=== PATIENT | female | born 1950 | race Caucasian/White ===

== ENCOUNTER 2017-06-15 12:02 | Day surgery (SDC) | payer MEDICARE ==
[~2017-06-15 12:02] MED LIST: Acetaminophen TAB* 325 MG PO PRN; Buffered Lidocaine 0.9% SYRIN* 5 ML/SYR SYRINGE INTRADERM ONE
[2017-06-15] MEDS ORDERED: Buffered Lidocaine 0.9% SYRIN* 5 ML/SYR SYRINGE ONE (12:32)
[2017-06-15] MEDS ORDERED: Proparacaine 0.5% OPHTH.SOL* 15 ML BTL ONE (12:32)
[2017-06-15] MEDS ORDERED: Phenylephrine 2.5% OPTH.SOL* 2 ML BTL ONE (12:32)
[2017-06-15] MEDS ORDERED: Flurbiprofen 0.03% OPTH.SOL* 2.5 ML BTL ONE (12:32)
[2017-06-15] MEDS ORDERED: Lidocaine 1% MPF* 2 ML VIAL ONE (12:32)
[2017-06-15] MEDS ORDERED: acetaZOLAMIDE TAB* 250 MG ONE (12:32)
[2017-06-15] MEDS ORDERED: Cyclopentolate 1% OPTH.SOL* 2 ML BTL ONE (12:32)
[2017-06-15] MEDS ORDERED: Povidone Iodine 5% OPTH* 30 ML BTL ONE (12:32)
[2017-06-15] MEDS ORDERED: Neomycin/Polymy/Dex OPTH.SUSP* MAXITROL 0.1% 5 ML ONE (12:32)
[2017-06-15] MEDS ORDERED: Midazolam* 1 MG/ML 2 ML VIAL (2 MG) ONE ×2 (13:44→14:46)
[2017-06-15] MEDS ORDERED: fentaNYL* 50 MCG/ML 2 ML VIAL (100 MCG VIAL) ONE (13:44)
[2017-06-15 15:38] VITALS: BP 149/78
--- NOTE | 2017-06-15 15:42 | OP ---
DATE OF OPERATION: 06/15/2017 - [facility] DATE OF : 1950. SURGEON: Cesar Adame M.D. PREOPERATIVE DIAGNOSIS: Cataract left eye. POSTOPERATIVE DIAGNOSIS: Cataract left eye. OPERATIVE PROCEDURE: Phacoemulsification left eye with IOL. DESCRIPTION OF PROCEDURE: The patient was brought to the operating room after being given 1/2% Alcaine with epinephrine drops in the preoperative area. The eye was prepped and draped in the usual sterile fashion. Sterile drape and eyelid speculum were placed. Again, topical 1/2% Alcaine with epinephrine was given. A paracentesis incision was made at the 3 o'clock position with the No.75 blade. Clear cornea incision 2.2 x 2.2-mm was created at the 6 o'clock position starting at the anterior limbus using the 2.2-mm keratome. The anterior chamber was irrigated with 0.4 mL of 1% non-preservative intracameral lidocaine and filled with DisCoVisc. A capsulorrhexis was completed using the cystotome and the Utrata forceps. Hydrodissection was performed with balanced salt solution. The lens nucleus was removed with the Phacoemulsification handpiece without incident. Cortex was removed with the irrigation-aspiration handpiece. The capsular bag was re-inflated using DisCoVisc and an [id number] 14.5 implant was inserted with the shooter. The irrigation-aspiration handpiece was used to remove all residual DisCoVisc. The eye was refilled with balanced salt solution and the wound checked and found to be watertight. Topical Maxitrol drops were given. [id number]/[facility] #: [id number] [facility]
== END 2017-06-15 15:26 | disposition home or self-care (01) ==
LOC: OREAST 12:02
PROVIDERS: ATTEND Specialist
DX: H25.812 Combined forms of age-related cataract, left eye (principal); H40.053 Ocular hypertension, bilateral; I10 Essential (primary) hypertension; E66.01 Morbid (severe) obesity due to excess calories; Z68.41 Body mass index [BMI] 40.0-44.9, adult
CPT/HCPCS: A9270-GY; J2250; J3010; V2632

== ENCOUNTER 2017-06-22 07:13 | Day surgery (SDC) | payer MEDICARE ==
[2017-06-22] MEDS ORDERED: Ketorolac 0.5% OPHTH (NF) 0.5 % 5 ML BTL ONE (09:04)
[2017-06-22] MEDS ORDERED: Neomycin/Polymy/Dex OPTH.SUSP* MAXITROL 0.1% 5 ML ONE (09:05)
[2017-06-22] MEDS ORDERED: Povidone Iodine 5% OPTH* 30 ML BTL ONE (09:05)
[2017-06-22] MEDS ORDERED: Buffered Lidocaine 0.9% SYRIN* 5 ML/SYR SYRINGE ONE (09:05)
[2017-06-22] MEDS ORDERED: Lidocaine 1% MPF* 2 ML VIAL ONE (09:05)
[2017-06-22] MEDS ORDERED: Cyclopentolate 1% OPTH.SOL* 2 ML BTL ONE (09:05)
[2017-06-22] MEDS ORDERED: Proparacaine 0.5% OPHTH.SOL* 15 ML BTL ONE (09:05)
[2017-06-22] MEDS ORDERED: acetaZOLAMIDE TAB* 250 MG ONE (09:05)
[2017-06-22] MEDS ORDERED: Phenylephrine 2.5% OPTH.SOL* 2 ML BTL ONE (09:05)
[2017-06-22] MEDS ORDERED: fentaNYL* 50 MCG/ML 2 ML VIAL (100 MCG VIAL) ONE (09:07)
[2017-06-22] MEDS ORDERED: Midazolam* 1 MG/ML 2 ML VIAL (2 MG) ONE ×2 (09:07→09:32)
[2017-06-22 10:04] VITALS: BP 138/67
--- NOTE | 2017-06-23 03:58 | OP ---
DATE OF OPERATION: 06/22/17 - LOCATED WITHIN [facility] DATE OF : [birth year] SURGEON: Cesar Adame M.D. PREOPERATIVE DIAGNOSIS: Cataract right eye. POSTOPERATIVE DIAGNOSIS: Cataract right eye. OPERATIVE PROCEDURE: Phacoemulsification right eye with IOL. DESCRIPTION OF PROCEDURE: The patient was brought to the operating room after being given 1/2% Alcaine with epinephrine drops in the preoperative area. The eye was prepped and draped in the usual sterile fashion. Sterile drape and eyelid speculum were placed. Again, topical 1/2% Alcaine with epinephrine was given. A paracentesis incision was made at the 9 o'clock position with the No.75 blade. Clear cornea incision 2.2 x 2.2-mm was created at the 12 o'clock position starting at the anterior limbus using the 2.2-mm keratome. The anterior chamber was irrigated with 0.4 mL of 1% non-preservative intracameral lidocaine and filled with DisCoVisc. A capsulorrhexis was completed using the cystotome and the Utrata forceps. Hydrodissection was performed with balanced salt solution. The lens nucleus was removed with the Phacoemulsification handpiece without incident. Cortex was removed with the irrigation-aspiration handpiece. The capsular bag was re-inflated using DisCoVisc and an [id number] 15 implant was inserted with the shooter. The irrigation-aspiration handpiece was used to remove all residual DisCoVisc. The eye was refilled with balanced salt solution and the wound checked and found to be watertight. Topical Maxitrol drops were given. [id number]/[facility] #: [id number] [facility]
== END 2017-06-23 10:11 | disposition home or self-care (01) ==
LOC: OREAST 07:13
PROVIDERS: ATTEND Specialist
DX: H25.811 Combined forms of age-related cataract, right eye (principal); H40.053 Ocular hypertension, bilateral; I10 Essential (primary) hypertension
CPT/HCPCS: A9270-GY; J2250; J3010; V2632

== ENCOUNTER 2018-01-21 08:09 | Emergency (ER) | payer MEDICARE ==
[2018-01-21] MEDS ORDERED: NS 0.9% 1000 ML* 1,000 ML IV ONE (08:26)
[2018-01-21] MEDS ORDERED: Ondansetron INJ* 2 MG/ML VIAL IV ONE (08:26)
[2018-01-21] MEDS ORDERED: Ondansetron INJ* 2 MG/ML VIAL ONE (08:27)
[2018-01-21] MEDS ORDERED: Metoclopramide IV* 5 MG/ML 2 ML VIAL IV SLOW PU ONE (09:15)
[2018-01-21 09:27] LABS: ABS Basophils 0.1 10^3/ul (0-0.2); ABS Eosinophils 0.1 10^3/ul (0-0.6); ABS Lymphocytes 1.3 10^3/ul (1.0-4.8); ABS Monocytes 0.5 10^3/ul (0-0.8); ABS Nucleated RBC 0 10^3/ul; Eosinophil % 1.2 % (0-6); Hematocrit 41 % (35-47); Lymphocyte % 16.8 % (25-47); Mean Corpuscular HGB Conc 34 g/dl (31-36); Mean Corpuscular Hemoglobin 28 pg (27-31); Mean Corpuscular Volume 81 fL (80-97); Mean Platelet Volume 8.3 um3 (7.4-10.4); Nucleated Red Blood Cells % 0.1; Platelet Count 202 10^3/ul (150-450); Red Blood Count 5.07 10^6/ul (4.0-5.4); Red Cell Distribution Width 14 % (10.5-15)
--- NOTE | 2018-01-21 09:46 | RAD ---
HISTORY: Vertigo COMPARISONS: None TECHNIQUE: Multiple contiguous axial CT scans were obtained of the head without intravenous contrast. FINDINGS: HEMORRHAGE/INFARCT: There is no hemorrhage or acute infarct. MASSES/SHIFT: There is no mass or shift. EXTRA-AXIAL SPACES: There are no extra-axial fluid collections. SULCI AND VENTRICLES: The sulci and ventricles are normal in size and position for the patient's stated age. CEREBRUM: There are no focal parenchymal abnormalities. BRAINSTEM: There are no focal parenchymal abnormalities. CEREBELLUM: There are no focal parenchymal abnormalities. VESSELS: The vessels are grossly normal. PARANASAL SINUSES: The paranasal sinuses are clear. ORBITS: The orbits are unremarkable. BONES AND SOFT TISSUE: No bone or soft tissue abnormalities are noted. OTHER: None IMPRESSION: NO ACUTE INTRACRANIAL PATHOLOGY.
[2018-01-21] MEDS: Meclizine TAB* 12.5 MG PO ONE ×2 (10:02→10:20)
[2018-01-21] MEDS: Metoprolol Tartrate TAB* 25 MG PO ONE ×2 (10:02→10:19)
[2018-01-21] MEDS ORDERED: Meclizine TAB* 12.5 MG PO ONE (11:09)
[2018-01-21 12:55] VITALS: BP 133/72
--- NOTE | 2018-01-21 14:44 | ED ---
Violeta Sung Emily, scribed for Eleazar Manning MD on 01/21/18 at 0920 . Dizziness - HPI Summary HPI Summary: This patient is a 67 year old F BIBA to [facility] accompanied by neighbors with a chief complaint of dizziness that began upon waking up this morning. The patient rates the pain 2/10 in severity. Symptoms aggravated by movement of head. Symptoms alleviated by moving of eyes. Patient reports skin diaphoresis, cough, nausea, vomiting, and headache. Patient denies ear pain and CP. Pt reports having similar symptoms previously that resolved on their own. Pt reports having bronchitis currently. - History Of Current Complaint Chief Complaint: EDDizziness Stated Complaint: DIZZINESS Time Seen by Provider: 01/21/18 08:36 Hx Obtained From: Patient Onset/Duration: Still Present, Suddenly Timing: Constant Severity Initially: Mild Severity Currently: Mild Character: Room Spinning Aggravating Factor(s): Change In Head Position Alleviating Factor(s): Other - Eye movement Associated Signs And Symptoms: Positive: Other: - Positive skin diaphoresis, cough, nausea, vomiting, and headache. Negative ear pain and CP - Allergies/Home Medications Allergies/Adverse Reactions: Allergies Allergy/AdvReac Type Severity Reaction Status Date / Time No Known Allergies Allergy Verified 06/22/17 07:59 PMH/Surg Hx/FS Hx/Imm Hx Previously Healthy: No Cardiovascular History: Reports: Hx Hypertension - PT. STATES CONTROLLED WITH MEDS Musculoskeletal History: Reports: Hx Arthritis - BILAT KNEES Sensory History: Reports: Hx Cataracts - BILAT, Hx Contacts or Glasses - GLASSES Denies: Hx Hearing Aid Opthamlomology History: Reports: Hx Cataracts - BILAT, Hx Contacts or Glasses - GLASSES - Surgical History Surgery Procedure, Year, and Place: LAPAROSCOPIC GALL BLADDER REMOVED 1997 [place]. TONSILLECTOMY A CHILD. LEFT KNEE SCOPING 2000 [place] Hx Anesthesia Reactions: No Infectious Disease History: No Infectious Disease History: Denies: Traveled Outside the [place] in Last 30 Days - Family History Known Family History: Positive: Other - Negative Meniere's disease Negative: Diabetes - Social History Occupation: Retired Lives: Alone Alcohol Use: None Substance Use Type: Reports: None Smoking Status (MU): Never Smoked Tobacco Review of Systems Positive: Skin Diaphoresis. Negative: Fever, Chills Negative: Erythema Positive: Other - Positive slight nasal congestion. Negative: Sore Throat Negative: Chest Pain Negative: Shortness Of Breath, Cough Positive: Vomiting, Nausea. Negative: Abdominal Pain Negative: dysuria, hematuria Negative: Myalgia, Edema Negative: Rash Neurological: Other - Positive dizziness Positive: Headache All Other Systems Reviewed And Are Negative: Yes Physical Exam - Summary Physical Exam Summary: Constitutional: Well-developed, Well-nourished, Alert. (-) Distressed Skin: Warm, Dry HENT: Normocephalic; Atraumatic Eyes: Conjunctiva normal Neck: Musculoskeletal ROM normal neck. (-) JVD, (-) Stridor, (-) Tracheal deviation Cardio: Rhythm regular, rate normal, Heart sounds normal; Intact distal pulses; The pedal pulses are 2+ and symmetric. Radial pulses are 2+ and symmetric. (-) Murmur Pulmonary/Chest wall: Effort normal. (-) Respiratory distress, (-) Wheezes, (-) Rales Abd: Soft, (-) Tenderness, (-) Distension, (-) Guarding, (-) Rebound Musculoskeletal: (-) Edema Lymph: (-) Cervical adenopathy Neuro: Alert, Oriented x3, Lateral supine roll test, lateralizes to the L and exacerbates her nystagmus and vertigo. When the pt is holding still, the vertigo resolves. Immediately upon movement it resumes. Psych: Mood and affect Normal Triage Information Reviewed: Yes Vital Signs On Initial Exam: Initial Vitals Temp Pulse Resp BP Pulse Ox 95.3 F 56 18 143/75 90 01/21/18 08:13 01/21/18 08:13 01/21/18 08:13 01/21/18 08:13 01/21/18 08:13 Vital Signs Reviewed: Yes Diagnostics - Vital Signs Vital Signs Temp Pulse Resp BP Pulse Ox 01/21/18 08:55 97.0 F 01/21/18 08:30 54 18 151/68 92 01/21/18 08:19 56 18 93 01/21/18 08:18 135/72 01/21/18 08:13 95.3 F 56 18 143/75 90 - Laboratory Result Diagrams: 01/21/18 09:16 01/21/18 09:16 Lab Statement: Any lab studies that have been ordered have been reviewed, and results considered in the medical decision making process. - CT Brain CT CT Interpretation Completed By: Radiologist - Brain CT reveals, per radiologist , no acute intracranial pathology. ED physician has reviewed this radiology report. - EKG 0839 Cardiac Rate: Bradycardia EKG Rhythm: Sinus Bradycardia - 57 BPM EKG Interpretation: No STEMI Re-Evaluation - Re-Evaluation First Eval Re-Evaluation Time: 12:44 Change: Improved Comment: Pt reports that her vertigo is significantly better. Dizzy Course/Dx - Course Assessment/Plan: Vertigo which is reproduced with lateral movement of the head in the setting of bronchitis. No cerumen impaction. Supportive care with meclizine to control the vertigo. Possible admission if it cannot be controlled. She is a fall risk. Ambulated safely with a walker. - Diagnoses Provider Diagnoses: Benign positional vertigo Discharge - Sign-Out/Discharge Documenting (check all that apply): Discharge - Discharge Plan Condition: Stable Disposition: HOME Prescriptions: Meclizine TAB* [Antivert 12.5 TAB*] 25 mg PO TID PRN #18 tab PRN Reason: Vertigo Ondansetron ODT TAB* [Zofran 4 MG Odt TAB*] 4 mg PO Q8H PRN #15 tab.odt PRN Reason: Nausea/Vomiting Patient Education Materials: Meclizine (By mouth), Ondansetron (By mouth), Vertigo (ED) Referrals: Nicolás Gaytan MD [Primary Care Provider] - 2 Days Additional Instructions: RETURN TO THE EMERGENCY DEPARTMENT FOR NEW OR CHANGING SYMPTOMS. The documentation as recorded by the Violeta brady Emily accurately reflects the service I personally performed and the decisions made by , Eleazar Manning MD.
== END 2018-01-21 12:56 | disposition home or self-care (01) ==
LOC: ED 08:09
DX: H81.10 Benign paroxysmal vertigo, unspecified ear (principal); R00.1 Bradycardia, unspecified; R61 Generalized hyperhidrosis; R05 Cough; R11.2 Nausea with vomiting, unspecified; R51 Headache; I10 Essential (primary) hypertension; M17.0 Bilateral primary osteoarthritis of knee
CPT/HCPCS: 36415; 70450; 80053; 85025; 96374; 96375; 99283; A9270-GY; J2405; J2765

== ENCOUNTER 2018-06-10 09:13 | Emergency (ER) | payer MEDICARE ==
[2018-06-10 10:03] VITALS: BP 154/92
--- NOTE | 2018-06-10 10:10 | UC ---
Complaint Female HPI - HPI Summary HPI Summary: pt notes odor to her urine and frequent urination since yesterday. no fever. slight ache to back. had uti 05/20/18. tx cipro x 5 days and got better. pt noted a bump over her L upper chest 2 days ago. denies skin rash, breast pain /lumps. does not do breast exams and has not had a mammogram. - History Of Current Complaint Chief Complaint: UCGU Stated Complaint: URINARY Time Seen by Provider: 06/10/18 09:53 Hx Obtained From: Patient Timing: Constant Pain Intensity: 2 Aggravating Factor(s): Nothing Alleviating Factor(s): Nothing Associated Signs And Symptoms: Negative: Fever - Allergies/Home Medications Allergies/Adverse Reactions: Allergies Allergy/AdvReac Type Severity Reaction Status Date / Time No Known Allergies Allergy Verified 06/10/18 09:56 PMH/Surg Hx/FS Hx/Imm Hx - Additional Past Medical History Additional PMH: vertigo Cardiovascular History: Hypertension - Surgical History Surgical History: Yes Surgery Procedure, Year, and Place: LAPAROSCOPIC GALL BLADDER REMOVED 1997 [place]. TONSILLECTOMY A CHILD. LEFT KNEE SCOPING 2000 [place] - Family History Known Family History: Positive: Other - Negative Meniere's disease Negative: Diabetes - Social History Occupation: Retired Lives: Alone Alcohol Use: None Substance Use Type: None Smoking Status (MU): Never Smoked Tobacco - Immunization History Vaccination Up to Date: Yes Review of Systems Constitutional: Negative Skin: Other - lump L upper chest Eyes: Negative ENT: Negative Respiratory: Negative Cardiovascular: Negative Gastrointestinal: Negative Genitourinary: Frequency - plus odor Motor: Negative Neurovascular: Negative Musculoskeletal: Negative Neurological: Negative Psychological: Negative Is Patient Immunocompromised?: No All Other Systems Reviewed And Are Negative: Yes Physical Exam Triage Information Reviewed: Yes Appearance: Well-Appearing Vital Signs: Initial Vital Signs Temp 98.1 F 06/10/18 09:53 Pulse 80 06/10/18 09:53 Resp 18 06/10/18 09:53 BP 154/92 06/10/18 09:53 Pulse Ox 97 06/10/18 09:53 Vital Signs Reviewed: Yes Eyes: Positive: Conjunctiva Clear ENT: Positive: Normal ENT inspection Neck: Positive: Supple, Nontender, No Lymphadenopathy Respiratory: Positive: Lungs clear, Normal breath sounds Cardiovascular: Positive: RRR, No Murmur Abdomen Description: Positive: Nontender, No Organomegaly, Soft. Negative: Bruit, CVA Tenderness (R), CVA Tenderness (L), Distended, Guarding Bowel Sounds: Positive: Present Musculoskeletal: Positive: ROM Intact Neurological: Positive: Alert Psychological: Positive: Age Appropriate Behavior Skin Exam: Normal, Other - Single enlarged-tender left clavicular node. No rash to trunk. No axillary, cervical or epitroclear adenopathy. No palpable breast masses. Diagnostics - Laboratory Diagnostic Studies Completed/Ordered: u/a= 1+ blood and trace leuk esters with culture pending. Complaint Female Dx - Course Course Of Treatment: 1.will tx presumptively for uti while culture pending give s/s's. 2. BP elevated-hx tx htn. 3. Single L clavicle adenopathy. no over breast mass. need to f/u pcp this Tuesday for additonal evaluation of the lymp node stressed at time of visit. pt agrees. - Differential Dx/Diagnosis Provider Diagnoses: Urinary frequency with mal odor. Single Left clavicular adenopathy. Discharge - Sign-Out/Discharge Documenting (check all that apply): Patient Departure - Discharge Plan Condition: Stable Disposition: HOME Prescriptions: Cephalexin CAP* [Keflex CAP*] 500 mg PO BID 7 Days #14 cap Patient Education Materials: Urinary Tract Infection in Women (ED), Lymphadenopathy (ED) Referrals: Nicolás Gaytan MD [Primary Care Provider] - 2 Days Additional Instructions: YOU MUST FOLLOW UP WITH DR GAYTAN THIS TUESDAY TO DETERMINE THE CAUSE OF THE ENLARGED LYMPH NODE ON YOUR CHEST. TODAYS VISIT IS NO SUBSTITUTE. - Billing Disposition and Condition Condition: STABLE Disposition: Home
== END 2018-06-10 10:40 | disposition home or self-care (01) ==
LOC: UCCORT 09:13
DX: R35.0 Frequency of micturition (principal); R59.9 Enlarged lymph nodes, unspecified; I10 Essential (primary) hypertension
CPT/HCPCS: 81003; 87086; 99212; G0463

== ENCOUNTER 2019-04-22 09:46 | Emergency (ER) | payer MEDICARE ==
--- OUTSIDE RECORDS SUMMARY | 2019-04-22 09:54 | XMS REPORT | Continuity of Care Document ---
:1950 External Reference #:[id number] Author Name Isela Ramey Care Team Providers Name Role Phone Javi Morris MD Primary Care Physician Unavailable Payers Date Identification Numbers Payment Provider Subscriber Policy Number: [id number] [employer] Shelia Gamble PayID: [id number] [address] [address] Attn: [place] [address] Problems Active Problems Provider Date Thoracic aortic ectasia Osvaldo Prieto M.D., [facility] Onset: 02/14/2019 Essential hypertension Osvaldo Prieto M.D., [facility], [facility] Onset: 02/06/2018 Chest pain Osvaldo Prieto M.D., [facility], [facility] Onset: 01/28/2017 Social History Type Date Description Comments Sex Unknown Marital Status Lives With Alone Occupation Retired Tobacco Use Start: Unknown Never Smoked Cigarettes Smoking Status Reviewed: 04/20/19 Never Smoked Cigarettes ETOH Use Denies alcohol use Tobacco Use Start: Unknown Patient has never smoked Recreational Drug Use Denies Drug Use Exercise Type/Frequency Exercises sporadically Allergies, Adverse Reactions, Alerts Active Allergies Reaction Severity Comments Date Lisinopril Headache 01/28/2017 Diclofenac severe dizziness 01/28/2017 Inactive Allergies NKDA 01/26/2017 Medications Active Medications SIG Qnty Indications Ordering Date Provider Acetaminophen 1 tablets by Unknown 325mg Tablets mouth every 6 hours as needed for pain/fever Metoprolol Tartrate 2 by mouth once Unknown 25mg Tablets a day Amlodipine Besylate 1 by mouth Unknown 5mg Tablets every day Calcium 600 + D 1 by mouth Unknown [id number] daily Tablets Hydrochlorothiazide 1 by mouth Unknown 12.5mg Capsules every day History Medications Multi Vitamin Daily 1 by mouth every 30tabs Osvaldo Sofia 02/06/2018 - day.. hair skin & Joey Prieto, 02/13/2019 Tablets nails w/ biotint CARMELAC, FASNC antioxidants Lisinopril 1 by mouth every day Unknown - 20mg 01/27/2017 Tablets Zestoretic 1 by mouth every day Unknown - 25mg-20mg 01/27/2017 Tablets Amlodipine Besylate 1 by mouth every day Unknown - 02/17/2017 5mg Tablets Medications Administered in Office Medication SIG Qnty Indications Ordering Provider Date Technetium TC 99M Ica Nuclear Schedule 02/01/2017 Tetrofosmin, Per Unit Dose Up To 40 Millicuries Injection Inj, Regadenoson, 0.1 MG Osvaldo Prieto M.D., 01/31/2017 Injection REYES ASCENCIO Technetium TC 99M Osvaldo Prieto M.D., 01/31/2017 Tetrofosmin, Per Unit Dose REYES ASCENCIO Up To 40 Millicuries Injection Vital Signs Date Vital Result Comment 04/20/2019 10:52am Weight 206.00 lb Heart Rate 60 /min BP Systolic Sitting 138 mmHg LA Large Cuff BP Diastolic Sitting 82 mmHg LA Large Cuff BP Systolic Standing 130 mmHg LA Large Cuff BP Diastolic Standing 82 mmHg LA Large Cuff Respiratory Rate 16 /min Pain Level 0 O2 % BldC Oximetry 97 % 04/19/2019 8:44am Height 60 inches 5'0" Weight 202.00 lb Heart Rate 78 /min BP Systolic 124 mmHg BP Diastolic 80 mmHg Respiratory Rate 18 /min Body Temperature 98.1 F Pain Level 5 BMI (Body Mass Index) 39.4 kg/m2 02/14/2019 1:15pm Height 60 inches 5'0" Weight 205.50 lb with sneakers Heart Rate 68 /min BP Systolic Sitting 130 mmHg lue large cuff BP Diastolic Sitting 74 mmHg lue large cuff BP Systolic Standing 128 mmHg lue large cuff BP Diastolic Standing 74 mmHg lue large cuff Respiratory Rate 16 /min BMI (Body Mass Index) 40.1 kg/m2 Ejection Fraction 55-60% echo. 02/12/19 02/06/2018 9:35am Height 60 inches 5'0" Weight 201.31 lb Heart Rate 68 /min BP Systolic Sitting 138 mmHg lue lg cuff BP Diastolic Sitting 72 mmHg lue lg cuff BP Systolic Standing 130 mmHg lue lg cuff BP Diastolic Standing 68 mmHg lue lg cuff Respiratory Rate 16 /min Pain Level 0 BMI (Body Mass Index) 39.3 kg/m2 Ejection Fraction 55-60% 01/31/2018 echo 06/10/2017 2:02pm Height 60 inches 5'0" Weight 205.00 lb Heart Rate 72 /min BP Systolic Sitting 128 mmHg Rue large cuff BP Diastolic Sitting 74 mmHg Rue large cuff BP Systolic Standing 122 mmHg Rue BP Diastolic Standing 80 mmHg Rue Respiratory Rate 18 /min BMI (Body Mass Index) 40.0 kg/m2 Ejection Fraction 60-65% 02/11/17 02/18/2017 1:02pm Weight 205.00 lb Heart Rate 68 /min BP Systolic Sitting 124 mmHg Ra Regular Cuff BP Diastolic Sitting 74 mmHg Ra Regular Cuff BP Systolic Standing 132 mmHg Ra Regular Cuff BP Diastolic Standing 88 mmHg Ra Regular Cuff Respiratory Rate 20 /min Pain Level 0 O2 % BldC Oximetry 93 % 01/28/2017 9:48am Height 59 inches 4'11" Weight 207.25 lb Heart Rate 100 /min BP Systolic 138 mmHg Large Right Arm BP Diastolic 78 mmHg Large Right Arm BP Systolic Sitting 134 mmHg Large Left Arm BP Diastolic Sitting 80 mmHg Large Left Arm BP Systolic Standing 130 mmHg Large Left Arm BP Diastolic Standing 84 mmHg Large Left Arm Respiratory Rate 18 /min O2 % BldC Oximetry 97 % BMI (Body Mass Index) 41.9 kg/m2 Procedures Date Code Description Status 04/20/2019 62220 EKG Tracing & Interpretation Completed 02/14/2019 77832 EKG Tracing & Interpretation Completed 02/12/2019 60466 ECHO Transthoracic, Real-Time 2D With Doppler And Color Completed Flow 02/12/2019 27867 ECHO Transthoracic, Real-Time 2D With Doppler And Color Completed Flow 02/06/2018 08347 EKG Tracing & Interpretation Completed 01/31/2018 64080 ECHO Transthoracic, Real-Time 2D With Doppler And Color Completed Flow 01/31/2018 30027 ECHO Transthoracic, Real-Time 2D With Doppler And Color Completed Flow 06/10/2017 35867 EKG Tracing & Interpretation Completed 02/18/2017 87661 EKG Tracing & Interpretation Completed 02/11/2017 44230 ECHO Transthoracic, Real-Time 2D With Doppler And Color Completed Flow 01/31/2017 13293 Stress Test Completed 01/31/2017 70784 Myocardial Perfusion Imaging Tomographic (Spect) Multiple Completed Studies 01/28/2017 08113 EKG Tracing & Interpretation Completed Encounters Type Date Location Provider Dx Diagnosis Office Visit 02/14/2019 [facility] Osvaldo Sofia I77.810 Thoracic aortic 1:30p Of Chris Prieto M.D., ectasia [facility] Office Visit 02/06/2018 [facility] Osvaldo Sofia R07.9 Chest pain, 10:00a Of Chris Prieto M.D., unspecified [facility], [facility] I10 Essential (primary) hypertension Office Visit 06/10/2017 [facility] Z01.810 Encounter for 2:20p Cardiology Of DO Winston preprocedural [facility] cardiovascular examination Office Visit 02/18/2017 Card[facility] Osvaldo Sofia R07.9 Chest pain, 1:30p Services Of Chris Prieto M.D., unspecified AT [facility] Office Visit 01/28/2017 Cardiology Osvaldo Sofia R07.9 Chest pain, 10:00a Services Of Chris Prieto M.D., unspecified AT [facility] Plan of Treatment Future Appointment(s):2019 1:30 pm - CHRISTOPHER Potter at [facility]05/07/2019 11:15 am - Ruth Leblanc M.D. at [facility]04/27/2019 1:30 pm - Ruth Leblanc M.D. at [facility]04/20/2019 - Osvaldo Prieto M.D., [facility], [id number] Thoracic aortic ectasiaComments:As discussed, I feel you may have needed right carpal tunnel surgery 04/27/19 to be followed by the left carpal tunnel surgery from the cardiac standpoint.Follow up:as prior ordered TOE 01/2022 with OV post.I10 Essential (primary) hypertensionComments:Please continue to follow your blood pressure with your PCP.
--- OUTSIDE RECORDS SUMMARY | 2019-04-22 09:54 | XMS REPORT | Continuity of Care Document ---
:1950 External Reference #:[id number] Author Name Nathan Pulidomark Care Team Providers Name Role Phone Javi Morris MD Primary Care Physician Unavailable Payers Date Identification Numbers Payment Provider Subscriber Policy Number: [id number] [employer] Shelia Gamble PayID: [id number] [address] [address] Attn: [place] [address] Problems Active Problems Provider Date Thoracic aortic ectasia Osvaldo Prieto M.D., [facility], [facility] Onset: 02/14/2019 Essential hypertension Osvaldo Prieto M.D., [facility], [facility] Onset: 02/06/2018 Chest pain Osvaldo Prieto M.D., [facility], [facility] Onset: 01/28/2017 Social History Type Date Description Comments Sex Unknown Marital Status Lives With Alone Occupation Retired Tobacco Use Start: Unknown Never Smoked Cigarettes Smoking Status Reviewed: 04/19/19 Never Smoked Cigarettes ETOH Use Denies alcohol [...] 600 + D 1 by mouth Unknown [id number] twice a day Tablets Hydrochlorothiazide 1 by mouth Unknown 12.5mg Capsules every day History Medications Multi Vitamin Daily 1 by mouth every 30tabs Osvaldo Sofia 02/06/2018 - day.. hair skin & Joey Prieto, 02/13/2019 Tablets nails w/ biotint REYES ASCENCIO antioxidants Lisinopril 1 by mouth every day [...] Injection Vital Signs Date Vital Result Comment 04/19/2019 8:44am Height 60 inches 5'0" Weight [...] 41.9 kg/m2 Procedures Date Code Description Status 02/14/2019 94899 EKG Tracing & Interpretation Completed 02/12/2019 33229 ECHO Transthoracic, Real-Time 2D With Doppler And Color Completed Flow 02/12/2019 81920 ECHO Transthoracic, Real-Time 2D With Doppler And Color Completed Flow 02/06/2018 62610 EKG Tracing & Interpretation Completed 01/31/2018 01287 ECHO Transthoracic, Real-Time 2D With Doppler And Color Completed Flow 01/31/2018 35043 ECHO Transthoracic, Real-Time 2D With Doppler And Color Completed Flow 06/10/2017 89535 EKG Tracing & Interpretation Completed 02/18/2017 53219 EKG Tracing & Interpretation Completed 02/11/2017 19714 ECHO Transthoracic, Real-Time 2D With Doppler And Color Completed Flow 01/31/2017 92687 Stress Test Completed 01/31/2017 22339 Myocardial Perfusion Imaging Tomographic (Spect) Multiple Completed Studies 01/28/2017 33989 EKG Tracing & Interpretation Completed Encounters Type Date Location Provider Dx Diagnosis Office Visit 02/14/2019 [facility] Osvaldo Sofia I77.810 Thoracic aortic 1:30p Of Chris Prieto M.D., ectasia [facility], [facility] Office Visit 02/06/2018 [facility] Osvaldo Sofia R07.9 Chest pain, 10:00a Of Chris Prieto M.D., unspecified [facility], [facility] I10 Essential (primary) hypertension Office Visit 06/10/2017 [facility] Z01.810 Encounter for 2:20p Cardiology Of DO [facility] preprocedural [facility] cardiovascular examination Office Visit 02/18/2017 [facility] Osvaldo Sofia R07.9 Chest pain, 1:30p Services Of Chris Prieto M.D., unspecified AT [facility], [facility] Office Visit 01/28/2017 Card[facility] Osvaldo Sofia R07.9 Chest pain, 10:00a Services Of Chris Prieto M.D., unspecified AT [facility], [facility] Plan of Treatment Future Appointment(s):05/07/2019 11:15 am - Ruth Leblanc M.D. at [facility]04/27/2019 11:45 am - Ruth Leblanc M.D.04/19/2019 - Ruth Leblanc M.D.G56.01 Carpal tunnel syndrome, right upper limbFollow up: Follow up: 9-10 days [id number] Carpal tunnel syndrome, left upper limbFollow up:postop
[2019-04-22 10:21] VITALS: BP 133/69
--- NOTE | 2019-04-22 11:35 | UC ---
UC General HPI - HPI Summary HPI Summary: PT STATES HER URINE HAS A VERY FOUL ODOR THIS AM. SHE TOOK 2 OTC URINE TESTS THAT WERE + FOR A UTI. SHE DENIES ANY VAGINAL DISCHARGE OR DISCOMFORT. SHE DENIES ANY ABDOMINAL PAIN, FEVER, FLANK PAIN. SHE DENIES ANY DIETARY CHANGES THAT WOULD CAUSE HER TO HAVE FOUL URINE. SHE REPORTS SIMILAR S/S'S IN PAST WITH A UTI. + FREQUENCY AND URGENCY WHICH SHE HAS ALL THE TIME. - History of Current Complaint Chief Complaint: UCGU Stated Complaint: URINARY Time Seen by Provider: 04/22/19 11:28 Hx Obtained From: Patient Pain Intensity: 0 Associated Signs & Symptoms: Negative: Abdominal Pain, Fever - Allergy/Home Medications Allergies/Adverse Reactions: Allergies Allergy/AdvReac Type Severity Reaction Status Date / Time No Known Allergies Allergy Verified 04/22/19 10:14 Home Medications: Home Medications Calcium Carbonate [Super Calcium] 600 mg PO DAILY 04/22/19 [History Confirmed ] Hydrochlorothiazide TAB* [Hydrodiuril TAB*] 12.5 mg PO DAILY 04/22/19 [History Confirmed 04/22/19] Metoprolol Succinate XL TAB* [Toprol XL TAB*] 25 mg PO DAILY 04/22/19 [History Confirmed 04/22/19] amLODIPine TAB* [Norvasc 5 mg TAB*] 5 mg PO DAILY 04/22/19 [History Confirmed ] PMH/Surg Hx/FS Hx/Imm Hx - Additional Past Medical History Additional PMH: UTI, CARPAL TUNNEL Cardiovascular History: Hypertension - Surgical History Surgical History: Yes Surgery Procedure, Year, and Place: LAPAROSCOPIC GALL BLADDER REMOVED 1997 [place]. TONSILLECTOMY A CHILD. LEFT KNEE SCOPING 2000 [place] - Family History Known Family History: Positive: Other - Negative Meniere's disease Negative: Diabetes - Social History Alcohol Use: None Substance Use Type: None Smoking Status (MU): Never Smoked Tobacco - Immunization History Vaccination Up to Date: Yes Review of Systems All Other Systems Reviewed And Are Negative: Yes Constitutional: Negative: Fever, Chills Gastrointestinal: Negative: Abdominal Pain, Vomiting, Diarrhea, Nausea Genitourinary: Positive: Frequency, Urgency. Negative: Dysuria, Hematuria, Vaginal/Penile Itching, Vaginal/Penile Discharge, Vaginal/Penile Pain, Ulceration/Lesion Physical Exam Triage Information Reviewed: Yes Appearance: Well-Appearing Vital Signs: Initial Vital Signs Temp 98.2 F 04/22/19 10:14 Pulse 64 04/22/19 10:14 Resp 18 04/22/19 10:14 BP 133/69 04/22/19 10:14 Pulse Ox 99 04/22/19 10:14 Vital Signs Reviewed: Yes Eyes: Positive: Conjunctiva Clear Neck: Positive: Supple Respiratory: Positive: Lungs clear, Normal breath sounds, No respiratory distress Cardiovascular: Positive: RRR, No Murmur Abdomen Description: Positive: Nontender, No Organomegaly, Soft. Negative: CVA Tenderness (R), CVA Tenderness (L) Bowel Sounds: Positive: Present Musculoskeletal: Positive: ROM Intact Neurological: Positive: Alert Psychological: Positive: Age Appropriate Behavior Skin Exam: Normal Diagnostics - Laboratory Lab Results: U/A=TRACE BLOOD AND 1+ LEUKOCYTES WITH CULTURE PENDING. Course/Dx - Differential Dx - Multi-Symptom Differential Diagnoses: Other - WILL START TX FOR PRESUMPTIVE UTI WHILE URINE CULTURE IS PENDING. - Diagnoses Provider Diagnosis: Malodorous urine Discharge - Sign-Out/Discharge Documenting (check all that apply): Patient Departure All imaging exams completed and their final reports reviewed: No Studies - Discharge Plan Condition: Stable Disposition: HOME Prescriptions: Cephalexin CAP* [Keflex CAP*] 500 mg PO BID 7 Days #14 cap Patient Education Materials: Urinary Urgency and Frequency (DC) Referrals: Javi Morris MD [Primary Care Provider] - 7 Days - Billing Disposition and Condition Condition: STABLE Disposition: Home - Attestation Statements Provider Attestation: Per institutional requirements, I have reviewed the chart, however, I was not consulted specifically or made aware of this patient by the midlevel provider. I did not personally evaluate, interact with , or disposition this patient.
== END 2019-04-22 11:45 | disposition home or self-care (01) ==
LOC: UCCORT 09:46
DX: R82.90 Unspecified abnormal findings in urine (principal); I10 Essential (primary) hypertension; Z87.440 Personal history of urinary (tract) infections
CPT/HCPCS: 81003; 87086; 99212; G0463

== ENCOUNTER → 2019-04-27 09:38 | Day surgery (SDC) | payer MEDICARE ==
--- NOTE | 2019-04-23 10:13 | HP ---
PREOPERATIVE HISTORY AND PHYSICAL: DATE OF SURGERY/ADMISSION: 04/27/19 [facility] ATTENDING SURGEON: Ruth Leblanc MD * (DICTATED BY JOSE BRANNON) PROCEDURE: Right wrist carpal tunnel release. HISTORY OF PRESENT ILLNESS: This is a 68-year-old female who complains of bilateral hand pain ongoing for several months. She does not recall any specific injury. Symptoms are worse on the right than on the left. She has used wrist braces in the past, but they are not very helpful anymore. She has had a nerve conduction study done in the past, which shows severe carpal tunnel syndrome bilaterally. She has received a cortisone injection in the past from her primary care physician, but it was not helpful, that was for her right carpal tunnel. She is interested in pursuing surgical intervention at this time in the form of a right carpal tunnel release. She is followed by [employer] Dr. Prieto for a history of chest pain and we will obtain clearance from him prior to proceeding with surgery. PAST MEDICAL HISTORY: 1. Hypertension. 2. History of chest pain, dilated aorta. PAST SURGICAL HISTORY: 1. Cholecystectomy. 2. Tonsillectomy and adenoidectomy. 3. Bilateral cataract removal. 4. Left knee arthroscopy. MEDICATIONS: 1. Acetaminophen 325 mg 1 q.6 hours p.r.n. pain. 2. Amlodipine besylate 5 mg daily. 3. Calcium 600 plus vitamin D daily. 4. Hydrochlorothiazide 12.5 daily. 5. Metoprolol tartrate 25 mg 2 tabs daily. ALLERGIES: DICLOFENAC and LISINOPRIL caused dizziness. FAMILY MEDICAL HISTORY: Noncontributory. SOCIAL HISTORY: The patient is retired. 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 She denies tobacco use, recreational drug use, and does not drink alcohol. REVIEW OF SYSTEMS: Negative for general, cephalic, cardiovascular, respiratory , GI, , other musculoskeletal, integumentary, endocrine, neurologic, and hematologic symptoms. Infectious Disease: Negative for history of MRSA, hepatitis C, HIV. PHYSICAL EXAMINATION GENERAL: Well-developed, well-nourished 68-year-old female, in no acute distress. VITAL SIGNS: Height 5 feet tall, weight 206 pounds, pulse rate 60, blood pressure 138/82. HEENT: Normocephalic and atraumatic. Pupils are equal, round, and reactive to light and accommodation. Extraocular movements are intact. Throat is clear. NECK: Supple. No palpable lymph nodes. PULMONARY: Lungs are clear to auscultation bilaterally. No wheezes, rales, or rhonchi. CARDIOVASCULAR: Regular rate and rhythm. S1 and S2. No murmurs, rubs, or gallops. No edema. ABDOMEN: Positive bowel sounds. Soft and nontender. NEUROLOGIC: Alert and oriented x3. Cranial nerves II through XII are intact. Sensation is intact to light touch. MUSCULOSKELETAL: On exam of her bilateral hands, she has some thenar wasting visible on both hands, worse on the right than on the left. She has weakness with thumb abduction bilaterally. She can make a full fist and fully extend her fingers. She has decreased sensation on the tips of her fingers on the right hand. Positive Tinel's sign at the median nerve on the right. IMAGING STUDY: EMG nerve conduction study shows severe bilateral carpal tunnel syndrome. IMPRESSION: As above. PLAN/RECOMMENDATIONS: The patient is scheduled to undergo a right wrist carpal tunnel release with Dr. Leblanc on 04/27/19. She will return to the office 10 days postop for followup and suture removal. She will plan on using over-the- counter medications for postoperative pain management. JOSE BRANNON [id number]/CPS #: [id number] MTDD
[~2019-04-27 09:38] MED LIST changes: -Buffered Lidocaine 0.9% SYRIN* 5 ML/SYR SYRINGE INTRADERM ONE; +Buffered Lidocaine 1% SYRIN* 1 ML/SYRINGE INTRADERM ONE; +Lactated Ringers 1000 ML Bag* 1,000 ML IV SCH; +Lidocaine 1% INJ* 10 MG/ML 30 ML SDV ONE; +Midazolam* 1 MG/ML 2 ML VIAL (2 MG) ONE; +Naloxone* 0.4 MG/ML 1 ML VIAL IV PRN; +Ondansetron INJ* 2 MG/ML VIAL IV PRN; +Propofol* 10 MG/ML 20 ML BTL ONE; +fentaNYL* 50 MCG/ML 2 ML VIAL (100 MCG VIAL) IV PRN; +fentaNYL* 50 MCG/ML 2 ML VIAL (100 MCG VIAL) ONE
[2019-04-27 12:02] VITALS: BP 120/77
--- NOTE | 2019-04-27 15:06 | OP ---
DATE OF OPERATION: 04/27/19 - SDS DATE OF : 48 SURGEON: Dr. Leblanc. PAN CLEANER: JOSE Potter. ANESTHESIA: Local MAC. PRE-OP DIAGNOSIS: Right carpal tunnel syndrome. POST-OP DIAGNOSIS: Right carpal tunnel syndrome. OPERATIVE PROCEDURE: Right carpal tunnel release. ESTIMATED BLOOD LOSS: Zero. TOURNIQUET TIME: About 10 minutes. INDICATION FOR PROCEDURE: Shelia is a 69-year-old female who has numbness and tingling in the median nerve distribution of her right hand. She presents for right carpal tunnel release. DESCRIPTION OF PROCEDURE: The patient was brought to the operating room, was given a sedation anesthetic and a local infiltration of 10 cc of 1% plain lidocaine in the palm of her right hand. The skin of her right hand and forearm was prepped and draped in the usual sterile fashion. The hand and forearm were exsanguinated and the tourniquet elevated to 250 mmHg. A longitudinal incision was made in the palm in line with the ring finger. We dissected through the subcutaneous tissue down to the transverse carpal ligament. The ligament was divided sharply with the knife and then more proximally with the scissors. The nerve was dissected free from the surrounding tissue and there is an area of moderate compression in the mid portion of the ligament. The wound was irrigated and the skin edges were reapproximated with 4-0 nylon suture. The wound was dressed with Xeroform, 4x4s , Webril, and an Gustavo wrap. The patient tolerated the procedure well and was brought to the recovery room in good condition. [id number]/[facility] #: [id number] [facility] HOSPITALBrenda
== END | disposition home or self-care (01) ==
LOC: OR 09:38
PROVIDERS: ATTEND Orthopaedic Surgery
DX: G56.01 Carpal tunnel syndrome, right upper limb (principal); I10 Essential (primary) hypertension; M19.90 Unspecified osteoarthritis, unspecified site; I77.810 Thoracic aortic ectasia
CPT/HCPCS: J2250; J2704; J3010

== ENCOUNTER 2019-05-29 07:25 | Day surgery (SDC) | payer MEDICARE, MEDICAID ==
--- NOTE | 2019-05-10 08:07 | HP ---
AMENDED REPORT NOW INCLUDES DATE OF ADMISSION - ESIGNED BEFORE ADJUSTMENT * PREOPERATIVE HISTORY AND PHYSICAL: DATE OF ADMISSION: 05/29/19 [facility] CHIEF COMPLAINT: Numbness and tingling in the left hand. HISTORY OF PRESENT ILLNESS: Shelia is a 69-year-old female who has carpal tunnel syndrome on both hands. She recently had a right carpal tunnel release and presents now for left carpal tunnel release. PAST MEDICAL HISTORY: 1. Hypertension. 2. Chest pain due to dilated aorta. PAST SURGICAL HISTORY: 1. Cholecystectomy. 2. Tonsillectomy. 3. Adenoidectomy. 4. Bilateral cataracts. 5. Left knee arthroscopy. MEDICATIONS: 1. Acetomorphine 325 mg 1 p.o. q.6 hours p.r.n. for pain. 2. Amlodipine besylate 5 mg daily. 3. Calcium 600 plus vitamin D daily. 4. Hydrochlorothiazide 12.5 mg daily. 5. Metoprolol tartrate 25 mg 2 tabs daily. ALLERGIES: To DICLOFENAC and LISINOPRIL causes dizziness. FAMILY HISTORY: Noncontributory. SOCIAL HISTORY: She is retired. 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 She denies tobacco use or recreational drug use and does not drink alcohol. REVIEW OF SYSTEMS: Negative for general, cephalic, cardiovascular, respiratory , GI, , other musculoskeletal, integumentary, endocrine, neurologic and hematologic symptoms. Negative for history of MRSA, hepatitis C and HIV. PHYSICAL EXAMINATION GENERAL: She is a healthy-appearing very pleasant woman, in minimal distress at rest. VITAL SIGNS: She is 5 feet tall, weighs 206 pounds. Pulse rate 70, blood pressure is 138/78. HEENT: Normocephalic and atraumatic. Pupils are equal, round, and reactive to light and accommodation. Extraocular movements are intact. NECK: Supple. No palpable lymph nodes. LUNGS: Clear to auscultation bilaterally. Good inspiratory effort. No wheezing. CARDIAC: Regular rate and rhythm without murmurs. ABDOMEN: Soft and nontender. MUSCULOSKELETAL: Decreased sensation in the median nerve distribution in the left hand consistent with carpal tunnel syndrome. NEUROLOGIC: Alert and oriented x3. IMPRESSION: Left carpal tunnel syndrome. PLAN: Left carpal tunnel release. The surgical procedure, risks and benefits were explained to the patient and she agrees to proceed. We will see her back in followup approximately 10 days postop. [id number]/CPS #: [id number] [facility]MBER
[~2019-05-29 07:25] MED LIST changes: -Acetaminophen TAB* 325 MG PO PRN; +Dexamethasone IV* 4 MG/ML 1 ML (4 MG) IV SLOW PU ONE; +Dexamethasone IV* 4 MG/ML 1 ML (4 MG) ONE; +Famotidine IV* 10 MG/ML 2 ML (20 mg) IV ONE; +Famotidine IV* 10 MG/ML 2 ML (20 mg) ONE; -Midazolam* 1 MG/ML 2 ML VIAL (2 MG) ONE; -Naloxone* 0.4 MG/ML 1 ML VIAL IV PRN; -Ondansetron INJ* 2 MG/ML VIAL IV PRN; -Propofol* 10 MG/ML 20 ML BTL ONE; -fentaNYL* 50 MCG/ML 2 ML VIAL (100 MCG VIAL) IV PRN; -fentaNYL* 50 MCG/ML 2 ML VIAL (100 MCG VIAL) ONE
[2019-05-29] MEDS ORDERED: Naloxone* 0.4 MG/ML 1 ML VIAL IV PRN (08:03)
[2019-05-29] MEDS ORDERED: oxyCODONE/Acetamin 5/325 MG* TAB PO PRN (08:03)
[2019-05-29] MEDS ORDERED: Ondansetron INJ* 2 MG/ML VIAL IV PRN (08:03)
[2019-05-29] MEDS ORDERED: fentaNYL* 50 MCG/ML 2 ML VIAL (100 MCG VIAL) IV PRN (08:03)
[2019-05-29] MEDS ORDERED: HYDROcodone/ACETAMIN 5-325 MG* 1 TAB PO PRN (08:03)
[2019-05-29] MEDS ORDERED: Acetaminophen TAB* 325 MG PO PRN (08:03)
[2019-05-29] MEDS ORDERED: Propofol* 10 MG/ML 20 ML BTL ONE (08:11)
[2019-05-29] MEDS ORDERED: Lidocaine 2% PF * 5 ML VIAL ONE (08:11)
[2019-05-29] MEDS ORDERED: Midazolam* 1 MG/ML 2 ML VIAL (2 MG) ONE (08:11)
[2019-05-29] MEDS ORDERED: fentaNYL* 50 MCG/ML 2 ML VIAL (100 MCG VIAL) ONE (08:11)
[2019-05-29 10:04] VITALS: BP 118/65
--- NOTE | 2019-05-29 11:54 | OP ---
CC: Dr. Leblanc OPERATIVE NOTE: DATE OF OPERATION: 05/29/19 DATE OF : 48 SURGEON: Ruth Leblanc MD PRODUCTION ASSOCIATE: JOSE Potter ANESTHESIA: Local MAC. PRE-OP DIAGNOSIS: Left carpal tunnel syndrome. POST-OP DIAGNOSIS: Left carpal tunnel syndrome. OPERATIVE PROCEDURE: Left carpal tunnel release. ESTIMATED BLOOD LOSS: Zero. TOURNIQUET TIME: Approximately 8 minutes. INDICATION FOR PROCEDURE: Shelia is a 69-year-old woman who has numbness and tingling in the median nerve distribution of her left hand. She presents for left carpal tunnel release. DESCRIPTION OF PROCEDURE: The patient was brought to the operating room, was given a sedation anesth etic and a local infiltration of 10 cc of 1% plain lidocaine in the palm of her left hand. The skin of her left hand and forearm was prepped and draped in the usual sterile fashion. The hand and forea rm were exsanguinated and the tourniquet elevated to 250 mmHg. A longitudinal incision was made in t he palm in line with the ring finger. We dissected through the subcutaneous tissue down to the trans verse carpal ligament. The ligament was divided sharply with a knife and then more proximally with t he scissors. The nerve was dissected free from surrounding tissue and there was an area of moderate compression of the median nerve at the mid portion of the ligament. The wound was irrigated and the skin edges reapproximated with 4-0 nylon suture. The wound was dressed with Xeroform, 4x4, Webril, a nd an Gustavo wrap. The patient tolerated the procedure well and was brought to the recovery room in [facility]. [id number]/[facility] #: [id number]
== END 2019-05-29 09:40 | disposition home or self-care (01) ==
LOC: OREAST 07:25
PROVIDERS: ATTEND Orthopaedic Surgery
DX: G56.02 Carpal tunnel syndrome, left upper limb (principal); I10 Essential (primary) hypertension; R07.89 Other chest pain; I77.819 Aortic ectasia, unspecified site
CPT/HCPCS: J1100; J2250; J2704; J3010

== ENCOUNTER 2021-02-26 12:36 | Inpatient (IN) ==
[~2021-02-26 12:36] MED LIST changes: +Buffered Lidocaine 1% SYRIN 1 ml INTRADERM ONE; -Buffered Lidocaine 1% SYRIN* 1 ML/SYRINGE INTRADERM ONE; +Dexamethasone IV 4 MG/ML VIAL 1 ml VIAL IV SLOW PU ONE; -Dexamethasone IV* 4 MG/ML 1 ML (4 MG) IV SLOW PU ONE; -Dexamethasone IV* 4 MG/ML 1 ML (4 MG) ONE; +Famotidine IV 10 MG/ML 2 ml VIAL (20 mg) IV ONE; -Famotidine IV* 10 MG/ML 2 ML (20 mg) IV ONE; -Famotidine IV* 10 MG/ML 2 ML (20 mg) ONE; -Lactated Ringers 1000 ML Bag* 1,000 ML IV SCH; +Lactated Ringers 1000 ml BAG 1,000 ML IV SCH; -Lidocaine 1% INJ* 10 MG/ML 30 ML SDV ONE; +Propofol 0 MG/0 ML BTL ONE
[2021-02-26] MEDS ORDERED: Midazolam 2 mg/2 ml VIAL 1 mg/ml 2 ml VIAL (2 mg) ONE (13:08)
[2021-02-26] MEDS ORDERED: fentaNYL 100 mcg/2 ml 50 MCG/ML VIAL ONE ×3 (13:09→18:16)
[2021-02-26] MEDS ORDERED: Propofol 10 mg/ml 100 ML BTL 100 ML ONE (13:11)
[2021-02-26] MEDS ORDERED: Dexamethasone IV 4 MG/ML VIAL 1 ml VIAL ONE (13:16)
[2021-02-26] MEDS ORDERED: ceFAZolin 2 GM PREMIX 2 GM/50 ML BAG ONE (13:16)
[2021-02-26] MEDS ORDERED: Famotidine IV 10 MG/ML 2 ml VIAL (20 mg) ONE (13:16)
[2021-02-26] MEDS ORDERED: Acetaminophen IV 1 GM/100ML 1,000 MG/100 ML VIAL IVPB ONE (13:23)
[2021-02-26] MEDS ORDERED: Prochlorperazine 5 mg/ml 2 ml VIAL (10 mg) IV PRN (13:23)
[2021-02-26] MEDS ORDERED: Naloxone 0.4 mg VIAL 0.4 mg/ml 1 ml VIAL IV PRN (13:23)
[2021-02-26] MEDS ORDERED: Morphine 4 MG/ML VIAL (1 ml) IV PRN (13:23)
[2021-02-26] MEDS ORDERED: ROPIVACAINE 5 MG/ML 30 ML BTL (0.5%) ONE (13:50)
[2021-02-26] MEDS ORDERED: EPHEDrine (Pressors) 50 MG/ML VIAL ONE ×2 (14:54→17:00)
[2021-02-26] MEDS ORDERED: Ropivacaine 5 MG/ML 20 ML VIAL 0.5% (100 MG) ONE (15:15)
[2021-02-26] MEDS ORDERED: oxyCODONE/Acetamin 5/325 mg TAB PO PRN (16:09)
[2021-02-26] MEDS ORDERED: Ondansetron ODT 4 mg TAB 4 MG TAB PO PRN (16:09)
[2021-02-26] MEDS ORDERED: Morphine 2 MG/ML SYRINGE IV PRN (16:09)
[2021-02-26] MEDS ORDERED: Lactulose 30 ml UDC PO PRN (16:09)
[2021-02-26] MEDS ORDERED: Magnesium Hydroxide LIQ 30 ML UDC PO PRN (16:09)
[2021-02-26] MEDS ORDERED: diPHENhydraMINE 25 mg TAB PO PRN (16:09)
[2021-02-26] MEDS ORDERED: diPHENhydraMINE IV 50 MG/ML 1 ml VIAL (BENADRYL) IV PRN (16:09)
[2021-02-26] MEDS ORDERED: Lidocaine 2% PF 5 ML VIAL ONE (17:00)
[2021-02-26] MEDS ORDERED: Acetaminophen IV 1 GM/100ML 100 ML ONE (17:20)
[2021-02-26] MEDS: fentaNYL 100 mcg/2 ml 50 MCG/ML VIAL IV PRN ×3 (17:22→18:17)
[2021-02-26] MEDS: Lactated Ringers 1000 ml BAG 1,000 ML IV SCH (19:43)
[2021-02-26] MEDS: Magnesium Hydroxide LIQ 30 ML UDC PO SCH (20:49)
[2021-02-26] MEDS: ceFAZolin 1 GM ADVAN 1 GM in NS 0.9% 50 ML 50 ML IVPB SCH (22:55)
[2021-02-27] MEDS: Ondansetron 4 mg VIAL 2 MG/ML 2 ml VIAL IV PRN ×2 (00:03→13:42)
[2021-02-27] MEDS: Lactated Ringers 1000 ml BAG 1,000 ML IV SCH (04:01)
[2021-02-27 05:27] LABS: Hematocrit 38 % (35-47); Hemoglobin 12.4 g/dL (12.0-16.0); Mean Platelet Volume 9.2 fL (7.4-10.4); Platelet Count 209 10^3/uL (150-450)
[2021-02-27 05:44] LABS: Calcium 8.9 mg/dL (8.6-10.3); EGFR African American 158.1 (>60); EGFR Non-African American 130.6 (>60); Potassium 3.9 mmol/L (3.5-5.0)
[2021-02-27] MEDS: ceFAZolin 1 GM ADVAN 1 GM in NS 0.9% 50 ML 50 ML IVPB SCH ×2 (06:21→14:57)
[2021-02-27] MEDS: Magnesium Hydroxide LIQ 30 ML UDC PO SCH (08:12)
[2021-02-27] MEDS ORDERED: Vitamin THERAPEUTIC TAB PO SCH (09:00)
[2021-02-27 10:58] VITALS: BP 125/65
== END 2021-02-27 14:30 | disposition home or self-care (01) | DRG 470 ==
LOC: AA 12:36 → SSU 16:10
PROVIDERS: ADMIT Orthopaedic Surgery Adult Reconstructive Orthopaedic Surgery; ATTEND Orthopaedic Surgery Adult Reconstructive Orthopaedic Surgery

== ENCOUNTER 2024-07-11 05:29 | Observation (INO) ==
[~2024-07-11 05:29] MED LIST changes: -Buffered Lidocaine 1% SYRIN 1 ml INTRADERM ONE; -Dexamethasone IV 4 MG/ML VIAL 1 ml VIAL IV SLOW PU ONE; -Famotidine IV 10 MG/ML 2 ml VIAL (20 mg) IV ONE; -Lactated Ringers 1000 ml BAG 1,000 ML IV SCH; +Metoclopramide 5 MG/ML VIAL (10 mg) IV PRN; +NS 0.45% 1000 ml BAG 1,000 ML IV SCH; +Naloxone 0.4 mg VIAL 0.4 mg/ml 1 ml VIAL IV PRN; +Ondansetron 4 mg VIAL 2 MG/ML 2 ml VIAL IV PRN; -Propofol 0 MG/0 ML BTL ONE
[2024-07-11] MEDS: Buffered Lidocaine 1% SYRIN 1 ml INTRADERM ONE (05:32)
[2024-07-11] MEDS ORDERED: Tranexamic Acid 1 GM/100ML BAG 2,000 MG/200 ML BAG IV ONE (05:52)
[2024-07-11] MEDS ORDERED: ceFAZolin 2 GM PREMIX 2 GM/50 ML BAG ONE (05:52)
[2024-07-11] MEDS: Lactated Ringers 1000 ml BAG 1,000 ML IV SCH ×2 (06:07→14:44)
[2024-07-11 06:31] LABS: Rapid COVID-19 Molecular Undetected (Undetected)
[2024-07-11] MEDS ORDERED: Lidocaine 1% w EPI 1:100,000 MDV 20 ML VIAL ONE (06:42)
[2024-07-11] MEDS ORDERED: Vancomycin 1,000 MG VIAL ONE ×2 (06:43→07:22)
[2024-07-11] MEDS ORDERED: KETAMINE HCL 10 MG/ML 20 ml VIAL (200 MG) ONE (07:03)
[2024-07-11] MEDS ORDERED: fentaNYL 100 mcg/2 ml 50 MCG/ML VIAL ONE ×4 (07:03→12:11)
[2024-07-11] MEDS ORDERED: Dexamethasone IV 4 MG/ML VIAL 1 ml VIAL ONE (07:03)
[2024-07-11] MEDS ORDERED: ROPIVACAINE 5 MG/ML 30 ML BTL (0.5%) ONE (07:03)
[2024-07-11] MEDS ORDERED: Phenylephrine 40 mcg/mL 10mL (400mcg) SYRINGE ONE (08:07)
[2024-07-11] MEDS ORDERED: Phenylephrine IV 10 MG/ML 1 ml VIAL ONE (08:35)
[2024-07-11] MEDS ORDERED: Ondansetron 4 mg VIAL 2 MG/ML 2 ml VIAL ONE ×2 (08:53→13:17)
[2024-07-11] MEDS ORDERED: Propofol 10 MG/ML 20 ML BTL ONE ×2 (09:51→10:35)
[2024-07-11] MEDS ORDERED: NS 0.45% 1000 ml BAG 1,000 ML IV SCH (11:00)
[2024-07-11] MEDS ORDERED: Morphine 2 MG/ML SYRINGE IV PRN ×2 (11:12→11:37)
[2024-07-11] MEDS ORDERED: Ondansetron 4 mg VIAL 2 MG/ML 2 ml VIAL IV PRN ×2 (11:12→11:37)
[2024-07-11] MEDS ORDERED: Ondansetron ODT 4 mg TAB 4 MG TAB PO PRN ×2 (11:12→11:37)
[2024-07-11] MEDS ORDERED: Magnesium Hydroxide LIQ 30 ML UDC PO PRN ×2 (11:12→11:37)
[2024-07-11] MEDS ORDERED: Lactulose 30 ml UDC PO PRN ×2 (11:12→11:37)
[2024-07-11] MEDS ORDERED: Calcium Carb (TUMS) 500 mg CHEW TAB PO PRN ×2 (11:12→11:37)
[2024-07-11] MEDS: fentaNYL 100 mcg/2 ml 50 MCG/ML VIAL IV PRN (11:20)
[2024-07-11] MEDS ORDERED: Naloxone 0.4 mg VIAL 0.4 mg/ml 1 ml VIAL IV PRN (11:39)
[2024-07-11] MEDS ORDERED: Acetaminophen IV 1 GM/100ML 1,000 MG/100 ML BAG IV ONE (11:52)
[2024-07-11] MEDS ORDERED: ceFAZolin 2 GM PREMIX 2 GM/50 ML BAG IV SCH (12:00)
[2024-07-11] MEDS ORDERED: Lactated Ringers 1000 ml BAG 1,000 ML IV SCH (12:00)
[2024-07-11] MEDS: Acetaminophen IV 1 GM/100ML 1,000 MG/100 ML BAG IV ONE ×2 (12:04→12:05)
[2024-07-11] MEDS ORDERED: Metoclopramide 5 MG/ML VIAL (10 mg) ONE (13:17)
[2024-07-11] MEDS: Ondansetron 4 mg VIAL 2 MG/ML 2 ml VIAL IV PRN (13:20)
[2024-07-11] MEDS: Metoclopramide 5 MG/ML VIAL (10 mg) IV PRN (13:20)
[2024-07-11] MEDS: ceFAZolin 2 GM PREMIX 2 GM/50 ML BAG IV SCH (16:33)
[2024-07-11] MEDS ORDERED: Magnesium Hydroxide LIQ 30 ML UDC PO SCH (21:00)
[2024-07-11] MEDS: Magnesium Hydroxide LIQ 30 ML UDC PO SCH (21:01)
[2024-07-12 05:13] LABS: Hematocrit 34.7 % (35-45); Hemoglobin 11.7 g/dL (11.5-14.3); Mean Platelet Volume 8.7 fL (7.5-11.2); Platelet Count 230 10^3/uL (150-450)
[2024-07-12 05:39] LABS: Calcium 8.4 mg/dL (8.6-10.3); Creatinine, Serum 0.51 mg/dL (0.51-0.95); Potassium 4.1 mmol/L (3.5-5.0); eGFR CKD-EPI 97.3 (>60)
[2024-07-12 06:08] LABS: Vitamin D Total 25(OH) 23.7 ng/mL (20-50)
[2024-07-12] MEDS: Vitamin THERAPEUTIC TAB PO SCH (07:39)
[2024-07-12] MEDS: Fluticasone NASAL SPRAY 50MCG 16 gm SPRAY BTL INTRANASAL SCH (07:39)
[2024-07-12] MEDS ORDERED: Vitamin THERAPEUTIC TAB PO SCH (09:00)
[2024-07-12 09:36] VITALS: BP 149/70
== END 2024-07-12 12:10 | disposition home or self-care (01) ==
LOC: OR 05:29 → SSU 05:29 → OR 10:50
PROVIDERS: ADMIT Orthopaedic Surgery; ATTEND Orthopaedic Surgery